=== PATIENT | male | born 1950 | race Two or more races ===

== ENCOUNTER 2024-07-16 14:07 | Inpatient (IN) | payer OTHER ==
[2024-07-16] VITALS (20 sets, daily range): BP systolic 84–123; BP diastolic 48–83; PULSE 56–100; RESP 12–23; TEMP 97.1–97.9; O2SAT 94–98
[~2024-07-16] VITALS: Ht 182.9 cm; Wt 98.0 kg
--- NOTE | 2024-07-16 14:17 | ED.PDOC ---
HPI Comments HPI: 73y M who presents to the ED for chief complaint of chest pain. Pt states he has been having chest pain since 0300 this AM.Pt states the pain is substernal, constant, radiating to the left upper extremity, with no associated exacerbating or relieving factors. Pt denies any associated symptoms but denies diaphoresis, palpitations, shortness of breath, fever, headache or dizziness. Pt has noted history of HTN and denies having taking anything except for fish oil his pain. Pt otherwise denies any other symptoms at this time. Vitals T: 98.0 F RR: 20 HR: 71 BP: 153/92 O2: 99 % on RA PMH HTN PSH: prostate, hip surgery, knee surgery Social hx: denies tobacco use, denies ETOH use, denies drug use medications; lisinopril, finasteride, fish oil supplements allergies: NKDA Chief Complaint: chest pain Time Seen by MD: 14:26 Reviewed Notes: Nurses Notes, Medications, Allergies Allergies: Coded Allergies: NO KNOWN ALLERGIES (Unverified , 07/16/24) Information Source: Patient Mode of Arrival: Ambulatory Brought in by: self Past Medical History PAST MEDICAL HISTORY: HTN Surgical History (Other): prostate, hip and knee surgery Family History Family History: Reviewed,noncontributory to illness Social History Smoker: Non-Smoker Alcohol: Denies ETOH Use Drugs: Denies Drug Use Lives In: Home Was a procedure done? Was a procedure done?: No CP Differential Dx Differential Diagnosis: N/A Differential Diagnosis: Other (Ddx include but not limitied to gastritis, musculoskeletal pain, radiculopathy, atypical chest pain, dissection, aneurysm, ACS, unstable angina, hiatal hernia, GERD, anxiety, costochondritis, PE, pneumothroax, neoplasm, cardiac ischemia, drug abuse, anemia.) X-Ray, Labs, Meds, VS Vital Signs Date Time Temp Pulse Resp B/P (MAP) Pulse Ox O2 Delivery O2 Flow Rate FiO2 07/16/24 17:00 75 20 104/67 (79) 95 07/16/24 17:00 104/67 07/16/24 16:12 110/67 07/16/24 16:00 70 12 110/67 (81) 98 07/16/24 16:00 66 07/16/24 15:14 52 07/16/24 15:09 56 16 98 Room Air* 0 21 07/16/24 15:00 98.2 57 12 107/69 (82) 99 98.2 07/16/24 14:32 46 18 100/43 (62) 98 07/16/24 14:10 98.0 71 20 153/92 (112) 99 07/16/24 14:10 68 Lab Test 07/16/24 17:15 07/16/24 15:20 07/16/24 14:48 07/16/24 14:14 Range/Units Troponin I High Sensitivity 179 *H 63 *H 59 *H </=54 ng/L Urine Color Yellow Yellow Urine Clarity Clear Clear Urine pH 5.0 5.0-9.0 Urine Specific [place] 1.029 1.001-1.035 Urine Protein Negative Negative Urine Ketones Negative Negative Urine Blood Negative Negative /uL Urine Nitrite Negative Negative Urine Bilirubin Negative Negative Urine Urobilinogen Normal Negative mg/dL Urine Leukocyte Esterase 1+ Negative /uL Urine RBC 4 0 - 3 /hpf Urine WBC 9 0 - 3 /hpf Urine Squamous Epithelial Cells Few <5 /hpf Urine Bacteria Few H None Seen /hpf Urine Mucus Few None Seen Urine Glucose Normal Normal mg/dL White Blood Count 9.6 4.4-10.8 10^3/uL Red Blood Count 5.00 4.5-5.90 10^6/uL Hemoglobin 16.4 13.5-17.5 g/dL Hematocrit 48.2 41.0-53.0 % Mean Corpuscular Volume 96.5 80.0-100.0 fL Mean Corpuscular Hemoglobin 32.9 H 28.0-32.0 pg Mean Corpuscular Hemoglobin Concent 34.1 32.0-36.0 g/dL Red Cell Distribution Width 13.6 11.8-14.3 % Platelet Count 324 140-450 10^3/uL Mean Platelet Volume 7.8 6.9-10.8 fL Neutrophils (%) (Auto) 44.5 37.0-80.0 % Lymphocytes (%) (Auto) 35.2 10.0-50.0 % Monocytes (%) (Auto) 9.5 0.0-12.0 % Eosinophils (%) (Auto) 10.0 H 0.0-7.0 % Basophils (%) (Auto) 0.8 0.0-2.0 % Neutrophils # (Auto) 4.3 1.6-8.6 10 ^3/uL Lymphocytes # (Auto) 3.4 0.4-5.4 10 ^3/uL Monocytes # (Auto) 0.9 0-1.3 10 ^3/uL Eosinophils # (Auto) 1.0 H 0-0.8 10 ^3/uL Basophils # (Auto) 0.1 0-0.2 10 ^3/uL Nucleated Red Blood Cells 0.1 % Sodium Level 140 136-145 mmol/L Potassium Level 4.0 3.5-5.1 mmol/L Chloride Level 108 H 98-107 mmol/L Carbon Dioxide Level 25 20-31 mmol/L Anion Gap 7 5-15 Blood Urea Nitrogen 19 9-23 mg/dL Creatinine 0.95 0.700-1.30 mg/dL Glomerular Filtration Rate Calc 85 >90 mL/min BUN/Creatinine Ratio 20.0 10.0-20.0 Serum Glucose 107 H 74-106 mg/dL Lactic Acid Level 1.9 0.4-2.0 mmol/L Calcium Level 10.1 8.7-10.4 mg/dL Total Bilirubin 0.3 0.2-1.0 mg/dL Aspartate Amino Transferase (AST) 15 13-40 U/L Alanine Aminotransferase (ALT) 24 7-40 U/L Alkaline Phosphatase 97 46-116 U/L B-Type Natriuretic Peptide 26.41 0-100 pg/mL Total Protein 7.3 5.7-8.2 g/dL Albumin 4.6 3.2-4.8 g/dL Current Medications Medications (Trade) Dose Ordered Sig/Aletha Route Start Time Stop Time Status Last Admin Aspirin 325 mg ONCE ONCE PO 07/16/24 14:15 07/16/24 14:20 DC 07/16/24 15:04 Nitroglycerin (Ntrostat Sublingual) 0.4 mg ONCE ONCE SL 07/16/24 14:15 07/16/24 14:20 DC 07/16/24 16:12 Sodium Chloride 1,000 ml @ 1,000 mls/hr Q1H ONCE IV 07/16/24 14:45 07/16/24 15:44 DC 07/16/24 15:03 Ceftriaxone Sodium 50 ml @ 100 mls/hr ONCE ONCE IV 07/16/24 15:15 07/16/24 15:44 DC 07/16/24 16:12 Sodium Chloride 1,000 ml @ 1,000 mls/hr Q1H ONCE IV 07/16/24 16:30 07/16/24 17:29 DC 07/16/24 16:31 Acetaminophen/ Hydrocodone Bitart ([place] 10/325MG Tab) 1 tab ONCE ONCE PO 07/16/24 16:45 07/16/24 16:46 DC 07/16/24 16:48 Clopidogrel Bisulfate (Plavix) 300 mg ONCE ONCE PO 07/16/24 17:15 07/16/24 17:16 DC 07/16/24 17:26 [place] [id number] Ph: [phone] DIAGNOSTIC IMAGING Diagnostic Imaging Report : [id number] Signed PATIENT: CLARITA THACKER ACCT: [id number] UNIT: [id number] : 1950 LOC: ER ROOM / BED: / AGE / SEX: 73 / M ADM STATUS: REG ER SERVICE 14 ORDERING PHYSICIAN: HARPER TADEO DO PROCEDURE(s): CXRP - CHEST PORTABLE REASON: cp ORDER NUMBER(s): [id number], ACCESSION NUMBER(s): [id number] CHEST RADIOGRAPH Indication: cp Technique: Single frontal view of the chest was obtained Comparison: None FINDINGS: Lines and Tubes: None Lungs: No focal consolidation. Pleura: No effusion. No pneumothorax. Cardiomediastinal contours: Unremarkable Bones: No acute osseous abnormality. IMPRESSION: 1. No radiographic evidence of acute cardiopulmonary disease. HS:Y ATED BY: HELGA ADDISON DO DICTATED DATE/TIME: 07/16/24 1506 SIGNED BY: HELGA ADDISON DO SIGNED DATE/TIME: 07/16/24 1506 CC: Time of 1ST Reevaluation: 16:44 (The case was discussed with the admitting team (HPI, physical exam, labs and diagnostic tests that were available at the time of disposition, ED course, treatment plan) on the phone. They agreed to admit the patient to their service and assume care of this patient from this point forward. --- Iraj) Reevaluation 1ST: Unchanged Time of 2ND Reevaluation: 17:16 (The case was discussed with the cardiology team (HPI, physical exam, labs and diagnostic tests that were available at the time of disposition, ED course, treatment plan) on the phone. He reviewed the EKGs. He agrees with our management and recommends to add Plavix 300 mg p.o.. He said to activate the section laborer.) Patient Education/Counseling: Diagnosis, Treatment Family Education/Counseling: Diagnosis, Treatment Comments Patient presented with the above HPI.---chest pain--workup was initiated. patient was found with the above mentioned diagnosis. Patient was given: Aspirin, nitroglycerin, fluids, Plavix Patient ED course and VS have been stabilized. Patient has been reassessed in the ED and remained in a stable condition. Pertinent incidental findings were discussed with the patient and/or family. Patient/family voices understanding and is agreeable with plan. Patient has been observed in the ED adequate length of time to insure improve ment/stability. EKG started showing worsening findings concerning for ischemia and then STEMI. laborer aquatic life was activated. Cardiology was consulted. Dr. Francisco at bedside evaluated the patient and took him to section laborer. patient was admitted to the medicine team for further evaluation and treatment of their presentation. All the reports of any imaging studies that were ordered by myself were reviewed by myself. Departure 1 Departure Time of Disposition: 14:32 Impression: Primary Impression: Chest pain Additional Impressions: Elevated troponin ST segment depression STEMI (ST elevation myocardial infarction) Disposition: ADMITTED INPATIENT Admit to: Tele Condition: Guarded Discharged With: Self Critical Care Note Critical Care Time?: Yes (45 min-critical care time only) Heart Score Heart Score: Heart Score Response (Comments) Value History Moderate Suspicious [address]-Deviation 2 Age >65 2 Risk Factors 1 or 2 risk factors 1 Troponin 1-2 x's Normal limit 1 Total 7 I personally scribed for HARPER TADEO DO ([email or web address]) on 07/16/24 at 14:17. Electronically submitted by Preet Greene (MARCI). I personally scribed for HARPER TADEO DO ([email or web address]) on 07/16/24 at 14:27. Electronically submitted by Preet Greene (MARCI). I personally scribed for HARPER TADEO DO ([email or web address]) on 07/16/24 at 18:06. Electronically submitted by Preet Greene ([facility] – [place] HARPER TADEO DO Jul 16, 2024 14:17
[2024-07-16 14:42] LABS: Basophils # (auto) 0.1 10 ^3/uL (0-0.2); Basophils % (auto) 0.8 % (0.0-2.0); Hematocrit 48.2 % (41.0-53.0); Hemoglobin 16.4 g/dL (13.5-17.5); Lymphocytes # (auto) 3.4 10 ^3/uL (0.4-5.4); Lymphocytes % (auto) 35.2 % (10.0-50.0); Mean Corpuscular Hemoglobin 32.9 pg (28.0-32.0); Mean Corpuscular Hgb Conc. 34.1 g/dL (32.0-36.0); Mean Corpuscular Volume 96.5 fL (80.0-100.0); Monocytes # (auto) 0.9 10 ^3/uL (0-1.3); Monocytes % (auto) 9.5 % (0.0-12.0); Neutrophils # (auto) 4.3 10 ^3/uL (1.6-8.6); Neutrophils % (auto) 44.5 % (37.0-80.0); Nucleated Red Blood Cells % 0.1 %; Platelet Count (auto) 324 10^3/uL (140-450); Red Cell Distribution Width 13.6 % (11.8-14.3); White Blood Cell 9.6 10^3/uL (4.4-10.8)
[2024-07-16 14:58] LABS: Alanine Aminotransferase 24 U/L (7-40); Alkaline Phosphatase 97 U/L (46-116); Calcium 10.1 mg/dL (8.7-10.4); Carbon Dioxide 25 mmol/L (20-31); Chloride 108 mmol/L (98-107)
[2024-07-16 14:59] LABS: Urine Bacteria FEW /hpf (None Seen); Urine Blood Negative /uL (Negative); Urine Clarity Clear (Clear); Urine Color Yellow (Yellow); Urine Mucus FEW (None Seen); Urine Protein, UAD Negative (Negative); Urine Specific Gravity 1.029 (1.001-1.035); Urine Urobilinogen Normal (Negative); Urine WBC 9 /hpf (0 - 3)
[2024-07-16 14:59] LABS: Albumin 4.6 g/dL (3.2-4.8); Anion Gap 7 (5-15); Aspartate Aminotransferase 15 U/L (13-40); Bilirubin, Total 0.3 mg/dL (0.2-1.0); Blood Urea Nitrogen 19 mg/dL (9-23); Glucose 107 mg/dL (74-106); Sodium 140 mmol/L (136-145); Total Protein 7.3 g/dL (5.7-8.2)
[2024-07-16] MEDS: SODIUM CHLORIDE 0.9% 1,000 ML IV ONE ×2 (15:03→16:31)
[2024-07-16] MEDS: ASPirin 325 MG TAB PO ONE (15:04)
--- NOTE | 2024-07-16 15:08 | DVH ---
CHEST RADIOGRAPH Indication: cp Technique: Single frontal view of the chest was obtained Comparison: None FINDINGS: Lines and Tubes: None Lungs: No focal consolidation. Pleura: No effusion. No pneumothorax. Cardiomediastinal contours: Unremarkable Bones: No acute osseous abnormality. IMPRESSION: 1. No radiographic evidence of acute cardiopulmonary disease. HS:Y
[2024-07-16] MEDS: cefTRIAXone 1GM/50ML D5W 50 ML IV ONE (16:12)
[2024-07-16] MEDS: NITROGLYCERIN 0.4 MG SL TAB SL ONE (16:12)
[2024-07-16] MEDS: HYDROcodone-ACET 10/325MG TAB PO ONE (16:48)
[2024-07-16] MEDS: HEPARIN SODIUM (PORCINE) 5000 UNITS/ML 1ML VIAL ONE (17:26)
[2024-07-16] MEDS: ANGIOMAX 250 MG VIAL IV ONE ×2 (17:26→18:41)
[2024-07-16] MEDS: CLOPIDOGREL BISULFATE 75 MG TAB PO ONE (17:26)
[2024-07-16] MEDS: IODIXANOL 320MG/ML 100ML BTL IV ONE ×2 (17:27→18:10)
[2024-07-16] MEDS: fentaNYL CITRATE 100 MCG/2 ML VL ONE (17:27)
[2024-07-16] MEDS: VERAPAMIL 2.5MG/ML INJ 2ML VIAL IV ONE (17:27)
[2024-07-16] MEDS: MIDAZOLAM HCL 2MG/2ML 2ml VIAL (1mg/ml) ONE (17:27)
[2024-07-16] MEDS: SODIUM CHL 0.9% 50 ML ONE ×2 (17:27→18:41)
[2024-07-16] MEDS: LIDOCAINE 2%HCL (LOCAL ANESTH.) INJ 20ML MDV ONE (17:27)
--- NOTE | 2024-07-16 17:56 | DVHINCON2 ---
Date Seen: Jul 16, [address] Sanchez Reason for Consultation Acute myocardial infarction History of Present Illness 73-year-old gentleman developed chest pain early this morning. It became severe. At about 1:00 a.m. this afternoon he came to the emergency room. He did have an EKG that was normal. The chest pain progressed in severity and intensity. Subsequent EKG is began to evolve. Code STEMI was called given his ST segments were elevated in the anterior leads and reciprocal changes noted in the inferior leads. Past Medical History He has an insignificant past medical history. He has had hip surgery prostate surgery and hypertension. No CAD. He is an avid and active athlete Past Surgical History As noted above he does have a history of previous prostate surgery hip surgery and knee surgery. Family History Nonsignificant for coronary artery disease. Social History Nondrinker nonsmoker. 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 Allergies: Coded Allergies: NO KNOWN ALLERGIES (Unverified , 07/16/24) Review of Systems No constitutional symptoms of fevers chills or weight loss. Cardiac and respiratory as noted above. GI neuro muscular cardiac musculoskeletal hematologic oncology and neurologically negative. Vital Signs Vital Signs Date Time Temp Pulse Resp B/P (MAP) Pulse Ox O2 Delivery O2 Flow Rate FiO2 07/16/24 17:00 75 20 104/67 (79) 95 07/16/24 15:09 Room Air* 0 21 07/16/24 15:00 98.2 98.2 Physical Exam Vital signs are as noted. HEENT examination is otherwise unremarkable. Orally well hydrated. No jugular distention no bruits. Lungs reveal good air entry no rales rhonchi. Heart exam reveals regular S1-S2 soft S4. Abdominal examination is otherwise unremarkable. Neurologically intact. Integumentary is normal. Labs/Diagnostic Data EKG shows sinus rhythm. The last EKG shows ST elevations in the anterior leads with reciprocal changes in the inferior leads. Labs Test 07/16/24 17:15 07/16/24 14:48 07/16/24 14:14 Range/Units Urine Color Yellow Yellow Urine Clarity Clear Clear Urine pH 5.0 5.0-9.0 Urine Specific [place] 1.029 1.001-1.035 Urine Protein Negative Negative Urine Ketones Negative Negative Urine Blood Negative Negative /uL Urine Nitrite Negative Negative Urine Bilirubin Negative Negative Urine Urobilinogen Normal Negative mg/dL Urine Leukocyte Esterase 1+ Negative /uL Urine RBC 4 0 - 3 /hpf Urine WBC 9 0 - 3 /hpf Urine Squamous Epithelial Cells Few <5 /hpf Urine Bacteria Few H None Seen /hpf Urine Mucus Few None Seen Urine Glucose Normal Normal mg/dL White Blood Count 9.6 4.4-10.8 10^3/uL Red Blood Count 5.00 4.5-5.90 10^6/uL Hemoglobin 16.4 13.5-17.5 g/dL Hematocrit 48.2 41.0-53.0 % Mean Corpuscular Volume 96.5 80.0-100.0 fL Mean Corpuscular Hemoglobin 32.9 H 28.0-32.0 pg Mean Corpuscular Hemoglobin Concent 34.1 32.0-36.0 g/dL Red Cell Distribution Width 13.6 11.8-14.3 % Platelet Count 324 140-450 10^3/uL Mean Platelet Volume 7.8 6.9-10.8 fL Neutrophils (%) (Auto) 44.5 37.0-80.0 % Lymphocytes (%) (Auto) 35.2 10.0-50.0 % Monocytes (%) (Auto) 9.5 0.0-12.0 % Eosinophils (%) (Auto) 10.0 H 0.0-7.0 % Basophils (%) (Auto) 0.8 0.0-2.0 % Neutrophils # (Auto) 4.3 1.6-8.6 10 ^3/uL Lymphocytes # (Auto) 3.4 0.4-5.4 10 ^3/uL Monocytes # (Auto) 0.9 0-1.3 10 ^3/uL Eosinophils # (Auto) 1.0 H 0-0.8 10 ^3/uL Basophils # (Auto) 0.1 0-0.2 10 ^3/uL Nucleated Red Blood Cells 0.1 % Sodium Level 140 136-145 mmol/L Potassium Level 4.0 3.5-5.1 mmol/L Chloride Level 108 H 98-107 mmol/L Carbon Dioxide Level 25 20-31 mmol/L Anion Gap 7 5-15 Blood Urea Nitrogen 19 9-23 mg/dL Creatinine 0.95 0.700-1.30 mg/dL Glomerular Filtration Rate Calc 85 >90 mL/min BUN/Creatinine Ratio 20.0 10.0-20.0 Serum Glucose 107 H 74-106 mg/dL Lactic Acid Level 1.9 0.4-2.0 mmol/L Calcium Level 10.1 8.7-10.4 mg/dL Total Bilirubin 0.3 0.2-1.0 mg/dL Aspartate Amino Transferase (AST) 15 13-40 U/L Alanine Aminotransferase (ALT) 24 7-40 U/L Alkaline Phosphatase 97 46-116 U/L B-Type Natriuretic Peptide 26.41 0-100 pg/mL Total Protein 7.3 5.7-8.2 g/dL Albumin 4.6 3.2-4.8 g/dL Assessment Acute ST-elevation myocardial infarction in evolution. Hypertension. Plan/Recommendation Patient will undergo cardiac catheterization therapeutic intervention on urgent basis. Risks and benefits have been explained. Patient agrees. Approximately 45 minutes of time was undertaken to coordinate and evaluate the patient urgently. Plan discussed with: Patient, Spouse Date of Service: Jul 16, 2024 Billing Provider: LOGAN WHITE Sr., MD Cardiology Common Codes: 70194-ZWIKAWZ INP/OBS CARE (High) Cardiology Consultation Codes: 58487-[id number] CONSULT <60MIN LOGAN WHITE Sr., MD Jul 16, 2024 17:56
[2024-07-16] MEDS: EPINEPHrine HCL 1 MG/10 ML SYRG ONE (18:08)
[2024-07-16] MEDS: ATROPINE SULF 1 MG/10ml SYR ONE ×2 (18:08→18:37)
[2024-07-16] MEDS: PHENYLEPHRINE IV 250 ML IV ONE (18:16)
--- NOTE | 2024-07-16 18:21 | ECG ---
[facility] Test Date: 2024-07-16 Test Time: 17:08:29 Pat Name: CLARITA THACKER Department: ER Room: [address] [place] [address] Gender: M Foreclosure Home Inspector: SUSAN : 1950 Requested By: HARPER TADEO Order Number: [id number] Reading MD: Arnoldo Chase Measurements Intervals [place] Rate: 72 P: 70 MN: 193 QRS: 9 QRSD: 98 T: 47 QT: 417 QTc: 457 Interpretive Statements Sinus rhythm Ventricular premature complex Probable anterolateral infarct, acute Electronically Signed On 07-17-2024 14:17:53 PST by Arnoldo Chase Please click the below link to view image of tracing.
--- NOTE | 2024-07-16 18:21 | ECG ---
[facility] Test Date: 2024-07-16 Test Time: 15:14:43 Pat Name: CLARITA THACKER Department: ER Room: [address] [place] [address] Gender: M Restaurant Server: SUSAN : 1950 Requested By: HARPER TADEO Order Number: [id number] Reading MD: Arnoldo Chase Measurements Intervals [place] Rate: 52 P: 49 WI: 185 QRS: 6 QRSD: 88 T: 14 QT: 439 QTc: 409 Interpretive Statements Sinus rhythm Atrial premature complexes in couplets Probable anteroseptal infarct, recent Lateral leads are also involved Electronically Signed On 07-17-2024 14:17:41 PST by Arnoldo Chase Please click the below link to view image of tracing.
--- NOTE | 2024-07-16 18:39 | ECG ---
[facility] Test Date: 2024-07-16 Test Time: 14:10:04 Pat Name: CLARITA THACKER Department: ER Room: [address] [place] [address] Gender: M Guide Rail Cleaner: IRAIDA : 1950 Requested By: HARPER TADEO Order Number: [id number] Reading MD: Arnoldo Chase Measurements Intervals [place] Rate: 68 P: 58 SD: 185 QRS: 10 QRSD: 89 T: 55 QT: 400 QTc: 426 Interpretive Statements Sinus rhythm Electronically Signed On 07-17-2024 14:17:22 PST by Arnoldo Chase Please click the below link to view image of tracing.
--- NOTE | 2024-07-16 19:09 | DVHOP2 ---
Operative Report -Cardiology Report Details Date: 07/16/24 Preop Diagnosis: Acute ST-elevation myocardial infarction. Postop Diagnosis: Acute IN. Successful PTCA and stenting of LAD. Intravascular ultrasound evaluation and thrombectomy of left anterior descending coronary artery. Surgeon: Logan Chase MD Anesthesiologist: Conscious sedation Anesthesia: Mac, Local Consent: The patient was informed of the risks and benefits of the procedure. These inc lude but are not limited to complications of anesthesia, postoperative infection, incomplete relief of symptoms, recurrence of symptoms, damage to blood vessels, nerves and tendons, deep venous thrombosis, pulmonary embolism and possible need for repeat surgery in the future. Complications: No complications Estimated Blood Loss: 5 cc Findings: Occluded left anterior descending coronary artery Indications for Surgery: Acute myocardial infarction Name of Procedure Performed Left heart catheterization bilateral cine coronary angiography left ventriculography. PTCA and stenting of LAD. Intravascular ultrasound evaluation of the left anterior descending coronary artery. Thrombectomy of left anterior descending coronary artery. Procedure Details Procedure Details: Prior local anesthesia with 2% lidocaine to the right radial artery and full informed consent obtained the patient was prepped and draped in usual fashion followed by placement of a six Yi sheath into the radial artery through whic h a three five EBU guiding catheter was used for ventriculography and cannulation of both right and left coronary ostia without complications. Hemodynamics: Aortic blood pressure was 90/50 with an end-diastolic pressure of 18. There was no gradient across the aortic valve on pullback. Coronary anatomy: The RCA is a large dominant vessel. There was a 40% stenosis of the proximal RCA. In the mid and distal segments have mild plaquing with no critical lesions. The PDA is large and normal. Small posterolateral branches are normal. The left main is short but normal. The left anterior descending coronary artery is 100% occluded proximally. The circumflex is a large vessel it has large marginals and posterolateral branches are normal. Ventriculography: Ventriculography was performed in the IQBAL projection showed an EF of about 30%. There is anterior apical akinesis. EF is about 30%. Angioplasty: The three five EBU guiding catheter was not placed into the proximal left main and with a Specter wire we probed until we found access into the left anterior descending coronary artery. We placed a two 5 x 15 mm balloon. We were able to cannulate the proximal LAD and reperfused the vessel successfully. We repositioned the wire from the diagonal into the LAD proper. There was notable thrombus within the proximal LAD. It appears that some thrombus and extended distally into the distal LAD which was very small and narrow. We then performed intravascular ultrasound incised the vessel subsequent to which we confirmed notable thrombus. We then placed a penumbra catheter/CAT Rx and performed two runs to remove as much thrombus as possible. We were not able to obtain thrombus distally since the vessel was rather small. We then placed a three 5 x 15 mm stent into the proximal LAD dilated to 13 atmospheres. There was excellent antegrade flow without thrombus remission under dissection. The lesion was resolved. LIILAN flow was three at the end of the procedure. LILIAN flow was 0 preoperatively. During the process of reperfusing the artery the blood pressure dropped and the patient required intra-arterial epinephrine as well as intravenous Anthony- Synephrine. Angiomax was used as an anticoagulant. The patient was preloaded with 300 mg of Plavix in the emergency room as well as aspirin. Subsequent to the termination of the procedure a new bag of Angiomax was instituted. Angiomax will remain infusing for at least an hour postprocedure. Patient will be going to ICU. Impression: 1. Elevated left ventricular end-diastolic pressure at rest. 2. Decreased left ventricular ejection fraction. 3. Single-vessel coronary artery disease with an occluded left anterior descending coronary artery presenting as a STEMI. 4. Successful PTCA and stenting of the left anterior descending coronary artery post thrombectomy with penumbra catheter and intravascular ultrasound evaluation. Recommendations: We will continue with dual antiplatelet therapy. Patient is allergic to statins. We will consider PCSK9 inhibitors as an outpatient. Dominance Dominance: Right LILIAN LILIAN Flow: Post- Intervention (LILIAN-3), Pre-Intervention (LILIAN-0) Lesion Lesion Complexity: High/C Lesion Length: 14 Residual Stenosis post procedu: 0% Disposition Still a Patient LOGAN CHASE Sr., MD Jul 16, 2024 19:09
[2024-07-16] MEDS ORDERED: NITROGLYCERIN 0.4 MG SL TAB SL PRN (21:15)
[2024-07-16] MEDS: PHENYLEPHRINE IV 250 ML IV SCH (23:39)
[2024-07-17] VITALS (65 sets, daily range): BP systolic 77–122; BP diastolic 44–79; PULSE 69–106; RESP 11–27; TEMP 97.9–98.7; O2SAT 86–99
[2024-07-17 04:18] LABS: Basophils # (auto) 0 10 ^3/uL (0-0.2); Basophils % (auto) 0.2 % (0.0-2.0); Eosinophils # (auto) 0 10 ^3/uL (0-0.8); Eosinophils % (auto) 0.4 % (0.0-7.0); Hematocrit 42.8 % (41.0-53.0); Hemoglobin 14.6 g/dL (13.5-17.5); Lymphocytes # (auto) 2.1 10 ^3/uL (0.4-5.4); Lymphocytes % (auto) 17.7 % (10.0-50.0); Mean Corpuscular Hemoglobin 32.8 pg (28.0-32.0); Mean Corpuscular Hgb Conc. 34.1 g/dL (32.0-36.0); Mean Corpuscular Volume 96.1 fL (80.0-100.0); Monocytes # (auto) 1.1 10 ^3/uL (0-1.3); Monocytes % (auto) 9.4 % (0.0-12.0); Neutrophils # (auto) 8.7 10 ^3/uL (1.6-8.6); Neutrophils % (auto) 72.3 % (37.0-80.0); Nucleated Red Blood Cells % 0.1 %; Platelet Count (auto) 292 10^3/uL (140-450); Red Blood Cells 4.45 10^6/uL (4.5-5.90); Red Cell Distribution Width 13.8 % (11.8-14.3); White Blood Cell 12.1 10^3/uL (4.4-10.8)
[2024-07-17 04:28] LABS: INR 1.03 (0.9-1.15); Partial Thromboplastin Time 28.7 SEC (24.5-34.5); Prothrombin Time 10.9 sec (9.3-11.8)
[2024-07-17 04:44] LABS: Alanine Aminotransferase 102 U/L (7-40); Albumin 3.7 g/dL (3.2-4.8); Alkaline Phosphatase 80 U/L (46-116); Anion Gap 8 (5-15); Aspartate Aminotransferase 687 U/L (13-40); BUN/Creatinine Ratio 15.9 (10.0-20.0); Bilirubin, Total 0.5 mg/dL (0.2-1.0); Blood Urea Nitrogen 14 mg/dL (9-23); Calcium 9.1 mg/dL (8.7-10.4); Carbon Dioxide 21 mmol/L (20-31); Chloride 109 mmol/L (98-107); Cholesterol 219 mg/dL (< 200); Glucose 117 mg/dL (74-106); HDL Cholesterol 39 mg/dL (40-59); LDL Cholesterol 160 mg/dL (< 100); Potassium 4.6 mmol/L (3.5-5.1); Sodium 138 mmol/L (136-145); Triglycerides 157 mg/dL (< 150)
[2024-07-17] MEDS: CLOPIDOGREL BISULFATE 75 MG TAB PO SCH (09:02)
[2024-07-17] MEDS: CARVEDILOL 3.125 MG TAB PO SCH (09:03)
[2024-07-17] MEDS: ASPirin 81 mg TAB PO SCH (09:03)
[2024-07-17] MEDS: LISINOPRIL 5 MG TAB PO SCH (09:04)
[2024-07-17] MEDS: EZETIMIBE 10 MG TAB PO SCH (09:04)
[2024-07-17] MEDS: MORPHINE SULFATE INJ 2 MG/ml SYRG IV PRN (14:48)
[2024-07-17] MEDS ORDERED: IBUPROFEN 400 MG TAB PO PRN (16:15)
[2024-07-18] VITALS (8 sets, daily range): BP systolic 93–108; BP diastolic 54–65; PULSE 65–128; RESP 17–20; TEMP 97.2–98.2; O2SAT 95–99
[2024-07-19] VITALS (8 sets, daily range): BP systolic 100–109; BP diastolic 55–68; PULSE 80–115; RESP 17–20; TEMP 97.4–98.4; O2SAT 92–96
[2024-07-19 11:06] LABS: Basophils # (auto) 0 10 ^3/uL (0-0.2); Basophils % (auto) 0.4 % (0.0-2.0); Eosinophils # (auto) 0.1 10 ^3/uL (0-0.8); Hematocrit 38.2 % (41.0-53.0); Lymphocytes # (auto) 1.8 10 ^3/uL (0.4-5.4); Lymphocytes % (auto) 14.9 % (10.0-50.0); Mean Corpuscular Hemoglobin 32.7 pg (28.0-32.0); Mean Corpuscular Volume 96.2 fL (80.0-100.0); Monocytes # (auto) 1.3 10 ^3/uL (0-1.3); Monocytes % (auto) 10.4 % (0.0-12.0); Neutrophils # (auto) 8.9 10 ^3/uL (1.6-8.6); Neutrophils % (auto) 73.3 % (37.0-80.0); Platelet Count (auto) 231 10^3/uL (140-450); Red Blood Cells 3.97 10^6/uL (4.5-5.90); Red Cell Distribution Width 13.4 % (11.8-14.3); White Blood Cell 12.1 10^3/uL (4.4-10.8)
[2024-07-19 11:25] LABS: Albumin 3.6 g/dL (3.2-4.8); Alkaline Phosphatase 71 U/L (46-116); Anion Gap 9 (5-15); BUN/Creatinine Ratio 18.4 (10.0-20.0); Bilirubin, Total 0.7 mg/dL (0.2-1.0); Blood Urea Nitrogen 18 mg/dL (9-23); Calcium 9.2 mg/dL (8.7-10.4); Carbon Dioxide 24 mmol/L (20-31); Chloride 103 mmol/L (98-107); Glucose 106 mg/dL (74-106); Potassium 3.8 mmol/L (3.5-5.1)
[2024-07-19 11:31] LABS: Alanine Aminotransferase 50 U/L (7-40); Aspartate Aminotransferase 142 U/L (13-40); Sodium 136 mmol/L (136-145)
[2024-07-19] MEDS ORDERED: NITR0.4S29 SL (16:14)
[2024-07-19] MEDS ORDERED: ASPI-325 PO (16:14)
[2024-07-19] MEDS ORDERED: LISI-275 PO (16:14)
[2024-07-19] MEDS ORDERED: CARV-214 PO (16:14)
[2024-07-19] MEDS ORDERED: CLOP75TA70 PO (16:14)
[2024-07-19] MEDS ORDERED: EZET-10 PO (16:14)
--- NOTE | 2024-07-19 16:25 | DVHPN2 ---
Progress Note - Dictate Date Seen: Jul 19, 2024 Medical Necessity Reason Pt with a Central, PICC or Fol: No Subjective Patient comfortable. Denies any chest pain. vital signs Vital Sign Date Time Temp Pulse Resp B/P (MAP) Pulse Ox O2 Delivery O2 Flow Rate FiO2 07/19/24 13:00 97.4 91 20 100/60 (73) 94 97.4 07/19/24 08:00 Nasal Cannula* 2 28 Total Intake and Output 07/18/24 07/18/24 07/19/24 15:00 23:00 07:00 Intake Total 650 ml 600 ml Balance 650 ml 600 ml medications Current Medications Medications Dose Ordered Sig/Aletha Route Start Time Stop Time Status Last Admin Dose Admin Aspirin 81 mg DAILY PO 07/17/24 10:00 07/19/24 09:52 81 MG Clopidogrel Bisulfate 75 mg DAILY PO 07/17/24 10:00 07/19/24 09:52 75 MG Carvedilol 3.125 mg DAILY PO 07/17/24 10:00 07/18/24 09:33 3.125 MG Lisinopril 2.5 mg DAILY PO 07/17/24 10:00 07/18/24 09:33 2.5 MG EZETIMIBE 10 mg DAILY PO 07/17/24 10:00 07/19/24 09:52 10 MG Nitroglycerin 0.4 mg Q5MINP PRN SL 07/16/24 21:15 Morphine Sulfate 2 mg Q30M PRN IV 07/16/24 21:15 07/17/24 18:13 2 MG Phenylephrine HCl 250 ml @ 30 mls/hr Q8H20M IV 07/16/24 22:30 Hold 07/16/24 23:39 30 MLS/HR Ibuprofen 400 mg Q6HP PRN PO 07/17/24 16:15 objective General: No acute distress Respiratory: CTA Cards: RRR, no edema laboratory and microbiology Laboratory Tests 07/19/24 10:50 Test 07/19/24 10:50 Range/Units Serum Glucose 106 74-106 mg/dL Problem List 1. STEMI s/p stenting to LAD 2. Hyperlipidemia 3. Acute Respiratory Failure Assessment/Plan -Aspirin, plavix, statin, ACEi -Physical therapy eval ordered -Discharge pending LifeVest -Downtitrate oxygen as tolerated with goal pulse ox 92%. Incentive spirometer added -Outpatient cardiac rehab Plan discussed with: Patient NAVEEN SPANN Jul 19, 2024 16:25
[2024-07-20 01:00] VITALS: BP 108/67; PULSE 96; RESP 18; TEMP 98.7; O2SAT 92
[2024-07-20 05:00] VITALS: BP 112/67; PULSE 96; RESP 18; TEMP 97.9; O2SAT 92
[2024-07-20 08:00] VITALS: PULSE 102; PULSE 96; RESP 16
[2024-07-20 09:00] VITALS: BP 104/68; PULSE 92; RESP 20; TEMP 99.3; O2SAT 95
[2024-07-20 13:00] VITALS: BP 107/77; PULSE 92; RESP 20; TEMP 99; O2SAT 92
--- NOTE | 2024-07-20 15:40 | DVHDS2 ---
Discharge Summary Date of Admission Jul 16, 2024 at 21:15 Date of Discharge: Jul 19, 2024 Labs/Diagnostic Data: Laboratory Results Test 07/19/24 10:50 07/17/24 03:38 07/16/24 14:48 07/16/24 14:14 White Blood Count 12.1 10^3/uL (4.4-10.8) Red Blood Count 3.97 10^6/uL (4.5-5.90) Hemoglobin 13.0 g/dL (13.5-17.5) Hematocrit 38.2 % (41.0-53.0) Mean Corpuscular Volume 96.2 fL (80.0-100.0) Mean Corpuscular Hemoglobin 32.7 pg (28.0-32.0) Mean Corpuscular Hemoglobin Concent 34.0 g/dL (32.0-36.0) Red Cell Distribution Width 13.4 % (11.8-14.3) Platelet Count 231 10^3/uL (140-450) Mean Platelet Volume 7.9 fL (6.9-10.8) Neutrophils (%) (Auto) 73.3 % (37.0-80.0) Lymphocytes (%) (Auto) 14.9 % (10.0-50.0) Monocytes (%) (Auto) 10.4 % (0.0-12.0) Eosinophils (%) (Auto) 1.0 % (0.0-7.0) Basophils (%) (Auto) 0.4 % (0.0-2.0) Neutrophils # (Auto) 8.9 10 ^3/uL (1.6-8.6) Lymphocytes # (Auto) 1.8 10 ^3/uL (0.4-5.4) Monocytes # (Auto) 1.3 10 ^3/uL (0-1.3) Eosinophils # (Auto) 0.1 10 ^3/uL (0-0.8) Basophils # (Auto) 0 10 ^3/uL (0-0.2) Nucleated Red Blood Cells 0.0 % Sodium Level 136 mmol/L (136-145) Potassium Level 3.8 mmol/L (3.5-5.1) Chloride Level 103 mmol/L (98-107) Carbon Dioxide Level 24 mmol/L (20-31) Anion Gap 9 (5-15) Blood Urea Nitrogen 18 mg/dL (9-23) Creatinine 0.98 mg/dL (0.700-1.30) Glomerular Filtration Rate Calc 81 mL/min (>90) BUN/Creatinine Ratio 18.4 (10.0-20.0) Serum Glucose 106 mg/dL (74-106) Calcium Level 9.2 mg/dL (8.7-10.4) Total Bilirubin 0.7 mg/dL (0.2-1.0) Aspartate Amino Transferase (AST) 142 U/L (13-40) Alanine Aminotransferase (ALT) 50 U/L (7-40) Alkaline Phosphatase 71 U/L (46-116) Total Protein 6.0 g/dL (5.7-8.2) Albumin 3.6 g/dL (3.2-4.8) Prothrombin Time 10.9 sec (9.3-11.8) Prothrombin Time INR 1.03 (0.9-1.15) Activated Partial Thromboplast Time 28.7 SEC (24.5-34.5) Hemoglobin A1c 5.6 % A1C (<5.7) Magnesium Level 2.0 mg/dL (1.6-2.6) Troponin I High Sensitivity > 97582 ng/L (</=54) Triglycerides Level 157 mg/dL (< 150) Cholesterol Level 219 mg/dL (< 200) LDL Cholesterol 160 mg/dL (< 100) HDL Cholesterol 39 mg/dL (40-59) Urine Color Yellow (Yellow) Urine Clarity Clear (Clear) Urine pH 5.0 (5.0-9.0) Urine Specific Howard 1.029 (1.001-1.035) Urine Protein Negative (Negative) Urine Ketones Negative (Negative) Urine Blood Negative /uL (Negative) Urine Nitrite Negative (Negative) Urine Bilirubin Negative (Negative) Urine Urobilinogen Normal mg/dL (Negative) Urine Leukocyte Esterase 1+ /uL (Negative) Urine RBC 4 /hpf (0 - 3) Urine WBC 9 /hpf (0 - 3) Urine Squamous Epithelial Cells Few /hpf (<5) Urine Bacteria Few /hpf (None Seen) Urine Mucus Few (None Seen) Urine Glucose Normal mg/dL (Normal) Lactic Acid Level 1.9 mmol/L (0.4-2.0) B-Type Natriuretic Peptide 26.41 pg/mL (0-100) Other Laboratory Tests 07/19/24 10:50 Brief Hx & Hospital Course: Patient is a 73-year-old male who presented with chest pain that began on the morning of admission. Upon arrival to the ER, the patient's chest pain continued to worsen. His EKG was noted to be evolving a code STEMI was called given ST segment elevation in the anterior leads with reciprocal changes in the inferior leads. Patient was taken to Management Train[facility] and had 3 drug-eluting stents to the LAD. 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 The PDA was large and normal. The left anterior descending coronary artery was noted to be 100% occluded proximally. The circumflex artery was noted to be normal as well. Patient's left ventricle ejection fraction was noted to be 30%. Patient was transitioned aspirin, Plavix, atorvastatin, STALIN, carvedilol. Patient was fitted with a LifeVest prior to discharge. He was counseled on the importance of not doing any exercise until follow-up with cardiology. Patient was discharged in stable condition. [facility] case management arrange follow-up appointments. Left Heart Cath Findings: The RCA is a large dominant vessel. There was a 40% stenosis of the proximal R CA. In the mid and distal segments have mild plaquing with no critical lesions. The PDA is large and normal. Small posterolateral branches are normal. The left main is short but normal. The left anterior descending coronary artery is 100% occluded proximally. The circumflex is a large vessel it has large marginals and posterolateral branches are normal. Ventriculography: Ventriculography was performed in the IQBAL projection showed an EF of about 30%. There is anterior apical akinesis. EF is about 30%. Condition at Discharge: Fair Final Diagnosis/Problems List STEMI Secondary Diagnosis: Hyperlipidemia Discharge Disposition: Home Discharge Instruct/Medications Diet: Cardiac 2g Na,low cholest Activity: Light activity Activity comment: No strenuous activity until seen by cardiology. Follow Up/Referral: Follow up with cardiology. Discharge Statement: "Patient was advised to return to the ER or call 911 if any headaches, dizziness, shortness of breath, chest pain, abdominal pain, bleeding, fevers, or worsening of medical condition. Patient was counseled about treatment plan, medications, possible side effects, patientverbalized understanding. All questions were answered to the best of my ability. This discharge took greater then 30 minutes in planning, reviewing documentation, counseling the patient, and discussing with other team members." ASSESSMENT ASSESSMENT Assessment STEMI NAVEEN SPANN DO Jul 20, 2024 15:40
--- NOTE | 2024-07-21 09:08 | ECG ---
[facility] Test Date: 2024-07-17 Test Time: 18:00:36 Pat Name: CLARITA THACKER Department: Respiratoy Room: 0212T B Gender: M Podiatry Assistant: : [id number] Requested By: LOGAN WHITE Order Number: [id number] Reading MD: Sachi Aguilar Measurements Intervals [place] Rate: 96 P: 64 NH: 187 QRS: 107 QRSD: 90 T: 81 QT: 321 QTc: 406 Interpretive Statements Sinus rhythm Anterolateral infarct, recent Electronically Signed On 07-22-2024 9:08:43 PST by Sachi Aguilar Please click the below link to view image of tracing.
--- NOTE | 2024-07-24 12:19 | DVHSR ---
APPROVED REPORT EXAM: Two-dimensional and M-mode echocardiogram with Doppler and color Doppler. Blood Pressure: 91/67 mmHg INDICATION S/P STEMI RISK FACTORS Height: 6', Weight: 217 DIMENSIONS LVDd5.2 (3.8-5.7cm)LA (2D)3.7 (1.9-4.0cm)Aortic Root3.8 (2.0-3.7cm) LVDs3.9 (2.5-4.0cm)LA (MM) (1.9-4.0cm)Aortic Cusp Exc1.8 (1.5-2.0cm) EF (%) 50.0 (55-70%)Rt. Atrium4.1 (1.9-4.0cm)Asc. Aorta3.9 cm IVSd1.0 (0.7-1.1cm)RV (D)3.5 (1.8-2.4cm) PWd1.2 (0.7-1.1cm) Mitral Valve MitralMitral Stenosis E wave0.54m/sMV Mean GR.mmHg A wave0.23m/sMV Peak GR.mmHg E/A ratio2.32D MVAcm2 DECEL [id number] 1/2 Timems Aortic Valve Aortic ValveAortic Stenosis V10.71m/Hoda Mean GR.2mmHg V20.93m/Hoda Peak GR.3mmHg LVOT Diameter2.2 (1.8-2.4cm)Doppler AVA2.90cm2 Pulmonic Valve V20.69m/s Tricuspid Valve TR Velocity2.57m/s [id number] Conclusion Technically good study. Sinus rhythm. Normal chamber sizes. Valves appear to be structurally normal. EF of 30%. Anterior akinesis. Right ventricular function is preserved. Doppler shows mild TR. No pericardial effusion masses or vegetations discernible.
== END 2024-07-20 15:40 | disposition home or self-care (01) | DRG 321 ==
LOC: ER 14:07 → TELE 21:15 → ICU WEST 22:31 → TELE-CENTR 07-17 17:35
PROVIDERS: ADMIT Internal Medicine; ATTEND Internal Medicine
PROC: 4A023N7 Measurement of Cardiac Sampling and Pressure, Left Heart, Percutaneous Approach (ICD-10-PCS; principal; 2024-07-16)
PROC: 027034Z Dilation of Coronary Artery, One Artery with Drug-eluting Intraluminal Device, Percutaneous Approach (ICD-10-PCS; 2024-07-16)
PROC: 02C03ZZ Extirpation of Matter from Coronary Artery, One Artery, Percutaneous Approach (ICD-10-PCS; 2024-07-16)
PROC: B211YZZ Fluoroscopy of Multiple Coronary Arteries using Other Contrast (ICD-10-PCS; 2024-07-16)
PROC: B215YZZ Fluoroscopy of Left Heart using Other Contrast (ICD-10-PCS; 2024-07-16)
PROC: B240ZZ3 Ultrasonography of Single Coronary Artery, Intravascular (ICD-10-PCS; 2024-07-16)
DX: I21.02 ST elevation (STEMI) myocardial infarction involving left anterior descending coronary artery (principal); I50.21 Acute systolic (congestive) heart failure; I25.10 Atherosclerotic heart disease of native coronary artery without angina pectoris; E78.5 Hyperlipidemia, unspecified; Z82.49 Family history of ischemic heart disease and other diseases of the circulatory system; I11.0 Hypertensive heart disease with heart failure
CPT/HCPCS: 36415; 71045; 80053; 80061; 81001; 83036; 83605; 83735; 83880; 84484; 85025; 85610; 85730; 87081; 92941; 92973; 92978; 93005; 93306; 93458; 97163; 99152; 99291; C1887; G0378; J2250; Q9967